=== PATIENT | female | born 1965 | race African-American/Black ===

== ENCOUNTER 2024-05-03 04:36 | Emergency (ER) | payer SELFPAY ==
[2024-05-03 04:58] VITALS: RESP 18
[2024-05-03] MEDS: AMOX TR/POTASSIUM CLAVULANATE 600 MG/5 ML PO ONE (05:57)
[2024-05-03 06:48] LABS: BASO % 0.6 % (0-2.0); HEMATOCRIT 36.8 % (32.4-45.2); HEMOGLOBIN 12.6 GM/dL (10.7-15.3); LYMPH % 14.4 % (8-40); MCH 30.5 pg (25.7-33.7); MCHC 34.3 g/dl (32.0-36.0); MEAN CELL VOLUME 88.9 fl (80-96); MEAN PLT VOLUME 8.8 fl (7.5-11.1); MONO % 13.7 % (3.8-10.2); NEUT % 71.3 % (42.8-82.8); PLATELET COUNT 174 10^3/uL (134-434); RBC 4.13 M/mm3 (3.60-5.2); RDW 13.7 % (11.6-15.6); WHITE BLOOD COUNT 8.6 K/mm3 (4.0-10.0)
[2024-05-03 07:03] LABS: POTASSIUM 3.5 mmol/L (3.5-5.1)
[2024-05-03 07:05] LABS: ALBUMIN 3.8 g/dl (3.4-5.0); CALCIUM 8.5 mg/dL (8.5-10.1)
[2024-05-03 07:06] LABS: BLOOD UREA NITROGEN 12.1 mg/dL (7-18)
[2024-05-03 07:09] LABS: CREATININE 0.9 mg/dL (0.55-1.3)
[2024-05-03 07:10] LABS: BILIRUBIN,TOTAL 0.5 mg/dL (0.2-1); TOT PROT 7.8 g/dl (6.4-8.2)
[2024-05-03] MEDS ORDERED: ACETAMINOPHEN 325 MG TABLET (FP) ONE (08:48)
[2024-05-03] MEDS: ACETAMINOPHEN 500 MG TABLET (FP) PO ONE (08:56)
[2024-05-03 09:12] VITALS: BP 114/71; PULSE 90
[2024-05-03 09:54] VITALS: TEMP 99.7
== END 2024-05-03 10:10 | disposition home or self-care (01) ==
LOC: JER 04:36
DX: U07.1 COVID-19 (principal); R07.81 Pleurodynia; R00.0 Tachycardia, unspecified; R50.9 Fever, unspecified
CPT/HCPCS: 0241U-QW; 36415; 71046-TC-FY; 80053; 84484; 85025; 85379; 93005; 93010; 99285-25